=== PATIENT | female | born 1985 ===

== ENCOUNTER → 2018-07-04 21:47 | Outpatient (REF) | payer OTHER, SELFPAY ==
[2018-07-07 22:07] LABS: RPR Screen Nonreactive (Nonreactive)
[2018-07-08 13:59] LABS: Varicella IgG Antibody < 135.00 Index (< 135.00)
== END ==
LOC: LAB 21:47
PROVIDERS: Visit Provider Family Medicine
DX: Z11.1 Encounter for screening for respiratory tuberculosis (principal); Z11.3 Encounter for screening for infections with a predominantly sexual mode of transmission
CPT/HCPCS: 36415; 86592; 86787; 87591